=== PATIENT | male | born 1980 | race Caucasian/White ===

== ENCOUNTER 2019-01-19 19:43 | Emergency (ER) | payer OTHER ==
[2019-01-19] MEDS ORDERED: Bacitracin Zinc 1 Packet ONE (20:12)
[2019-01-19] MEDS ORDERED: Adacel (T-DAP) 0.5 ML SYRINGE ONE (20:12)
== END 2019-01-19 20:25 | disposition home or self-care (01) ==
LOC: MADERS 19:43
DX: S61.250A Open bite of right index finger without damage to nail, initial encounter (principal); W54.0XXA Bitten by dog, initial encounter
CPT/HCPCS: 90471; 90715